=== PATIENT | female | born 1975 | race Caucasian/White ===

== ENCOUNTER 2023-12-01 22:41 | Inpatient (IN) | payer BC, SELFPAY ==
[2023-12-01 19:05] VITALS: BP 135/94; BMI 37.7
[2023-12-01 19:09] VITALS: BP 135/94
[2023-12-01 19:28] LABS: % Basophils 0.5 % (0-2); % Eosinophils 1.6 % (0-6); % Immature Granulocytes 0.3 % (0-0.5); % Lymphocytes 36.9 % (20.5-51.1); % Monocytes 8.7 % (1.7-9.3); Absolute Eosinophils 0.1 10^3/uL (0-0.7); Absolute Lymphocytes 2.4 10^3/uL (1.2-3.4); Absolute Monocytes 0.6 10^3/uL (0.1-0.6); Absolute Neutrophils 3.4 10^3/uL (1.4-6.5); Hematocrit 32.9 % (37.0-47.0); Hemoglobin 11.4 g/dL (12.0-16.0); Mean Corp Hgb Conc. 34.7 g/dL (33.0-37.0); Mean Corpuscular Hgb 26.7 pg (27.0-31.0); Mean Platelet Volume 9.6 fL (7.4-10.4); Nucleated Red Blood Cells % 0 %; Platelet Count 311 10^3/uL (130-400); Red Blood Cell Count 4.27 10^6/uL (4.20-5.40); Red Cell Dist. Width 14.3 % (11.5-14.5); White Blood Cell Count 6.5 10^3/uL (4.8-10.8)
[2023-12-01 19:43] LABS: ALT (SGPT) 16 U/L (0-35); AST (SGOT) 19 U/L (14-36); Alkaline Phosphatase 84 U/L (38-126); Blood Urea Nitrogen 17 mg/dl (7-17); Calcium 9.6 mg/dl (8.4-10.2); Carbon Dioxide 18 mmol/L (22-30); Chloride 108 mmol/L (98-107); Estimated Creatinine Clearance 95 ml/min; Glucose 92 mg/dl (70-99); Sodium 136 mmol/L (135-145); Total Bilirubin 0.2 mg/dl (0.2-1.3); Total Protein 6.9 g/dl (6.3-8.2); eGFR > 60.00
[2023-12-01 19:56] LABS: Troponin I 0.077 ng/ml
[2023-12-01 19:57] LABS: INR 0.95; PT 12.7 Sec (11.4-14.6)
[2023-12-01 19:58] LABS: APTT 26.3 Sec (23.4-35.0)
--- NOTE | 2023-12-01 20:01 | ED.GENMED ---
History of Present Illness
General
Chief Complaint: Cardiac Symptoms
Time Seen by Provider: 12/01/23 19:05
History of Present Illness
History of Present Illness:
48-year-old female with history of ventricular tachycardia with defibrillator presenting to the emergency department after her device fired. Reports prior to arrival she was lying in bed and her device fired. She did have some prodromal
lightheadedness and dyspnea. She now reports some residual shortness of breath. She cannot remember when her device last fired like this, did have a small event in October and I did see cardiology afterward. Denies any present chest pain.
Denies abdominal pain. Denies any recent fever or illness. Does report a little bit of chest soreness after the device fired. Denies additional acute medical complaints
Past History
Past History
ED Past Medical History: GERD and Other (opiate addiction, on Methadone)
ED Past Surgical History: None
Patient has exhibited threatening behavior?: No
Social History
Tobacco: Non-smoker
Alcohol: None
Drug: None
Personal: Other
Living: with family
Employment: Employed
Family History
Family History: Other
Phy Exam
Physical Exam
Physical Exam:
General: Well-appearing, no clinical signs of dehydration, nontoxic and in no acute distress
HEENT: protecting airway
Neck: appears supple
CV: Normal heart rate, regular rhythm
Resp: No accessory muscle use, no increased work of breathing, lungs clear to auscultation bilaterally
Abd: Soft and non-distended, no tenderness to palpation
Extremities: No deformities, no swelling
Neuro: alert, no focal neurologic deficit
: deferred
Rectal: deferred
Psych: Normal affect
Skin: Intact
Course
Orders/Labs/Results
Orders:
Orders
12/01/23 19:15
Electrocardiogram (*1) Urgent
Reason for Study: Shortness of Breath
EKG- Treatment ONCE
CR Chest - 2 Views Urgent
Comment:
Reason For Exam: defibrillator went off
12/01/23 19:20
Complete Blood Count/With Diff Urgent
Comprehensive Metabolic Panel Urgent
PTT Urgent
Prothrombin Time Urgent
Troponin I Urgent
Abnormal Lab Results
12/01/23
19:20
Hgb 11.4 L g/dL
(12.0-16.0)
Hct 32.9 L %
(37.0-47.0)
MCV 77.0 L fL
(81.0-99.0)
MCH 26.7 L pg
(27.0-31.0)
Chloride 108 H mmol/L
(98-107)
Carbon Dioxide 18 L mmol/L
(22-30)
Troponin I 0.077 H* ng/ml
12/01/23 19:20
12/01/23 19:20
Vital Signs
Initial and Last Documented VS:
Initial Vital Signs
Temp Pulse Resp BP Pulse Ox
98.4 F 86 18 135/94 97
12/01/23 19:05 12/01/23 19:05 12/01/23 19:05 12/01/23 19:05 12/01/23 19:05
Last Documented Vital Signs
Temp Pulse Resp BP Pulse Ox
98.4 F 86 19 135/94 97
12/01/23 19:05 12/01/23 19:30 12/01/23 19:30 12/01/23 19:09 12/01/23 19:41
MDM/Problems Addressed
MDM/Problems Addressed:
48-year-old female with history of ventricular tachycardia with defibrillator presenting to the emergency department after her device fired. Vital signs on arrival are normal.
On exam patient is resting comfortably, no acute distress or discomfort. EKG obtained, sinus rhythm. Suspect that patient may have had an episode of ventricular tachycardia given her history. Will interrogate device and obtain laboratory analysis
with plan to discuss with cardiology.
20:00 -Patient's troponin is elevated, however appears improved from prior. Suspected elevated from recent device firing.
21:00 -device interrogated, does show episode of V-fib with subsequent successful shock. Will discuss with cardiology with plan for admission.
*EKG
Interpreted by ED Provider?: Yes
EKG Intrepretation Date: 12/01/23
EKG Intrepretation Time: 20:03
Interpretation: normal
Comparison EKG: no changes (01/05/19)
Heart Rate: 80
Rate: normal
Rhythm: sinus
[place]: normal axis
Interval: other (QTc 525)
QRS Pattern: normal QRS
Ischemia: no ischemia
*Critical Care Note
Total Time (30-74mins, 75-104mins- exclusive of procedures): Not Applicable
ED Attending Note
-
Portions of this chart may have been created with voice recognition software.� Occasional wrong word or��sound alike� substitutions may have occurred due to the inherent limitations of voice recognition software.
Discharge Plan
Departure
Prescriptions:
No Action
esomeprazole magnesium [Nexium] 40 MG capsule,delayed release(DR/EC)
40 mg PO DAILY
fluoxetine 40 mg Capsule
40 mg PO HS
Rx Instructions:
take with 20mg for total of 60mg
quetiapine 300 mg Tablet
300 mg PO HS
lisinopril 20 mg Tablet
20 mg PO HS
metoprolol succinate 100 mg Tablet Extended Release 24 Hr
200 mg PO HS
ibuprofen [Advil] 200 mg Tablet
400 mg PO Q8HPRN PRN (Reason: mild pain)
methadone 10 mg/mL Concentrate
40 mg PO DAILY
fluoxetine 20 mg Capsule
20 mg PO HS
Rx Instructions:
take with 40mg for total of 60mg
medroxyprogesterone 150 mg/mL Suspension
150 mg IM [id number]
Referrals:
Aretha Chacon NP [Family Provider] -
Interventions
Interventions:
*Risk Screen - Suicide Last Done: 12/01/23 19:05
*General Assessment Last Done: 12/01/23 19:05
*Neglect/Abuse Screening Last Done: 12/01/23 19:05
ED- Fall Risk Assessment Last Done: 12/01/23 19:41
*ED COVID-19 Vaccine History Last Done: 12/01/23 19:41
ED- Pulmonary Assessment Last Done: 12/01/23 19:41
ED- Cardiac Assessment Last Done: 12/01/23 19:41
Discharge Date and Time
Print Language: ARMENIAN
[2023-12-01 20:09] VITALS: BP 129/74
[2023-12-01 21:00] VITALS: BP 107/75
--- NOTE | 2023-12-01 21:36 | HPS.HSE ---
Family Physician
-
Family Physician: Aretha Chacon
Chief Complaint
-
ICD fired
History of Present Illness
Patient is a 48-year-old female with past medical history significant for ventricular tachycardia with ICD placement in 2018 and previous IV drug abuser maintained on Methadone. Patient states she felt some palpitations and dyspnea around 1715 this
evening and at approximately 1720 the ICD fired causing her to come to [facility] ED for evaluation. Patient claims she feels palpitations for short spurts maybe once or twice a month, denies ICD firing prior to this since placement.
Patient denies any recent fever, chills, chest pain, dyspnea, cough, nausea, vomiting, constipation, diarrhea, or urinary symptoms. She denies any recent change in medications regimen at home.
Medical History
Past Medical History
Past Medical History: Reports Other
Additional Past Medical History:
monomorphic ventricular tachycardia
former IV drug abuse managed with methadone
hepatitis C infection
GERD
depression
Past Surgical History: Reports Other
Additional Past Surgical History:
ICD placement 12/2018
Social History
Tobacco: Smoker (1/2 pack per day for 29 years (15 pack year history))
Alcohol: None
Drug: Former User (says stopped long time ago, did not provide time frame)
Personal: Single
Living: With Family
Employment: Employed
Family History
Family History: Not pertinent
Allergies / Home Medications
Allergies reflects when Allergies were last updated in [employer].
Home Medications with original date entered in [employer]
Allergy/Medication List:
Allergies
Allergy/AdvReac Type Severity Reaction Status Date / Time
No Known Allergies Allergy Verified 12/24/18 17:40
Home Medications
esomeprazole magnesium 40 mg capsule,delayed release (Nexium) 40 mg PO DAILY 12/24/18
fluoxetine 20 mg capsule 20 mg PO HS 12/01/23
fluoxetine 40 mg capsule 40 mg PO HS 12/01/23
ibuprofen 200 mg tablet (Advil) 400 mg PO Q8HPRN PRN mild pain 12/01/23
lisinopril 20 mg tablet 20 mg PO HS 12/01/23
medroxyprogesterone 150 mg/mL intramuscular suspension 150 mg IM [id number] 12/01/23
methadone 10 mg/mL oral concentrate 40 mg PO DAILY 12/01/23
metoprolol succinate 100 mg tablet,extended release 24 hr 200 mg PO HS 12/01/23
quetiapine 300 mg tablet 300 mg PO HS 12/01/23
Review of Systems
-
Constitutional: Reports No Symptoms
EENT: Reports No Symptoms
Respiratory: Reports Other (dyspnea)
Cardiac: Reports Palpitations
Abdomen/GI: Reports No Symptoms
: Reports No Symptoms
Musculoskeletal: Reports No Symptoms
Skin: Reports No Symptoms
Neurological: Reports No Symptoms
Endocrine: Reports No Symptoms
Hematologic/Lymphatic: Reports No Symptoms
Psych: Reports No Symptoms
Physical Exam
Vital Signs
Vital Signs
Temp Pulse Resp BP Pulse Ox
98.4 F 73 17 107/75 98
12/01/23 19:05 12/01/23 21:30 12/01/23 20:15 12/01/23 21:00 12/01/23 21:30
Physical Exam
General: Well Developed, Well Nourished, No Apparent Distress, Comfortable and Conversant
HEENT: NormoCephalic, Moist mucous membranes, Atraumatic, PERRLA, [place] Conjunctivae, Nose Appears Normal and Ears Appear Normal
Respiratory: Clear and Non Labored Respirations; No Wheezes, Rales, Rhonchi or Crackles
Cardiac: S1/S2 and Regular Rhythm; No Murmur, Rub or Gallop
Breast: Deferred by me
GI: Soft, Non Tender, Non Distended and Normal Bowel Sounds; No Organomegaly
Rectal: Deferred by Provider
Genito-urinary: Deferred by me
Musculoskeletal: No Clubbing, No Cyanosis, No Edema and Normal Gait & Station
Skin: Warm, Dry and IV/Catheter Site; No Rash
Neuro: Awake, Alert, AO x 3 and Nonfocal/grossly intact
Hematologic/Lymphatic: No Lymphadenopathy
Psych: Calm and Intact Judgment/Insight
Laboratory Results
-
12/01/23 19:20
12/01/23 19:20
Laboratory Results
PT 12.7 Sec (11.4-14.6) 12/01/23 19:20
INR 0.95 12/01/23 19:20
APTT 26.3 Sec (23.4-35.0) 12/01/23 19:20
Total Bilirubin 0.2 mg/dl (0.2-1.3) 12/01/23 19:20
AST 19 U/L (14-36) 12/01/23 19:20
ALT 16 U/L (0-35) 12/01/23 19:20
Alkaline Phosphatase 84 U/L (38-126) 12/01/23 19:20
Troponin I 0.077 ng/ml H* 12/01/23 19:20
Data Reviewed
-
Diagnostic Radiology: Report Reviewed by me (CXR: No acute cardiopulmonary abnormality. Stable appearance of the left chest wall pacemaker/defibrillator with leads projecting over the right atrium and right ventricle.)
Medical Tests (Nuc Med, Echo, EKG etc): Report Reviewed by me (EKG: NORMAL SINUS RHYTHM WITH SINUS ARRHYTHMIA NONSPECIFIC T WAVE ABNORMALITY)
Lab Data: Labs Reviewed by me
Impression/Plan
-
IMPRESSION/PLAN:
#monomorphic ventricular tachycardia
- ICD placement in 2018
- Defibrillator fired this evening following a short period of palpitations and dyspnea
- Admit to IVU
- Continue metoprolol, lisinopril
- Trend troponin with EKG
- Monitor electrolytes
#former IV drug abuse managed with methadone
#Hx hepatitis C infection
- continue methadone
#GERD
- continue Nexium
#depression
- continue fluoxetine, quetiapine
Full Code
DVT Px: Lovenox SQ
--- NOTE | 2023-12-01 21:43 | W.PN.UPDATE ---
Update Note
Progress Note Update
Patient seen in conjunction with ACCESS TECH. I agree with the findings on history and physical as well as concur with the assessment and plan unless stated otherwise.
This is a 48-year-old female with past medical history of monomorphic V. tach status post defibrillator placement in 2019 who presents to the emergency department after device firing while she was sitting down watching TV. Interrogation of her
device showed that she had episode of V-fib that was terminated with defied shock. Patient has not been seen by cardiology for over a year due to noncompliance. Patient related that she has had 4 episodes of defibrillation since placement of the
device. He declined basically LFTs noted but it has been over a year. At that time he admitted to give against about skylar just called the on-call physician. This time the patient reported that she was feeling palpitations and felt like she was
about to be felt and did not know if she felt to be defibrillation. She talked with the on-call physician who requested that she go to emergency department. Patient denies any recent exertional chest pain, dyspnea on exertion, palpitations
lightheadedness or dizziness. She reports that she is noncompliant with her metoprolol and lisinopril. She takes methadone, fluoxetine, quetiapin. She denies taking any recreational drugs.
Intermittent department she was hemodynamically stable with a blood pressure of 100/75 pulse of 73. She is at 98% on room air. Chest x-ray was clear. ECG showed a normal sinus rhythm at a rate of 80. QTc was 525. CBC was unremarkable.
Chemistries were normal. Troponin was slightly elevated at 0.07.
Assessment and plan:
48 y.o w/ history non-obstructive CAD, monomorphic VT s/pp AICD with h/o defribillation episodes in the past comes in soon after episode of defribillation. Device indicated VFIB terminated with shock. Patient with palpitaitons immediately
antecedent but denies other symptoms. ECG non-ischemic, QTc 525. Trop 0.07. Lytes, CBC unremarkable. She is on methadone 40mg daily. Suspect ischemic vs non-ischemic cmp and patient also on QTc prolonging medications but does not appear to have
prolongation at this time.
- admit to ivu
- telemetry, repeat cardiac enzymes
- hold off on anti-arrythmia unless recurrence, then amio loading
- check cardiovascular labs and echo in am
- ecg for monitoring qtc
- continue metoprolol 200, hold lisinopril this evening and restart tomorrow
- cardiology consult to CBC, aware
DVT PPX - lovenox sq
Devin status - Full Code
[2023-12-01 22:00] VITALS: BP 132/91
[2023-12-01 23:00] VITALS: BP 120/83
[2023-12-02] VITALS: BP 112/68
[2023-12-02 00:24] VITALS: BP 138/86
--- NOTE | 2023-12-02 02:40 | PTCARENOTE ---
pt admitted into [facility]- ambulating without complaints GALI Fuentes- noted methadone use in H&P. Plan of care discussed pt verbalized understanding. monitor hand off completed pt SR on the monitor.
[2023-12-02 02:51] VITALS: BMI 36.5
[2023-12-02 03:18] VITALS: BP 136/84
[2023-12-02 04:25] LABS: % Basophils 0.6 % (0-2); % Eosinophils 1.3 % (0-6); % Immature Granulocytes 0.3 % (0-0.5); % Lymphocytes 39.1 % (20.5-51.1); % Monocytes 7.8 % (1.7-9.3); % Neutrophils 50.9 % (42.2-75.2); Absolute Eosinophils 0.1 10^3/uL (0-0.7); Absolute Lymphocytes 2.8 10^3/uL (1.2-3.4); Absolute Monocytes 0.6 10^3/uL (0.1-0.6); Absolute Neutrophils 3.6 10^3/uL (1.4-6.5); Hematocrit 37.2 % (37.0-47.0); Hemoglobin 12.8 g/dL (12.0-16.0); Mean Corp Hgb Conc. 34.4 g/dL (33.0-37.0); Mean Corpuscular Hgb 26.4 pg (27.0-31.0); Mean Corpuscular Volume 76.9 fL (81.0-99.0); Nucleated Red Blood Cells % 0 %; Red Blood Cell Count 4.84 10^6/uL (4.20-5.40); Red Cell Dist. Width 14.3 % (11.5-14.5)
[2023-12-02 05:10] LABS: ALT (SGPT) 17 U/L (0-35); AST (SGOT) 24 U/L (14-36); Albumin 4.2 g/dl (3.5-5.0); Alkaline Phosphatase 88 U/L (38-126); Blood Urea Nitrogen 15 mg/dl (7-17); Calcium 9.7 mg/dl (8.4-10.2); Carbon Dioxide 20 mmol/L (22-30); Chloride 108 mmol/L (98-107); Estimated Creatinine Clearance 93 ml/min; Glucose 91 mg/dl (70-99); Potassium 4.6 mmol/L (3.5-5.1); Sodium 139 mmol/L (135-145); Total Bilirubin 0.6 mg/dl (0.2-1.3); Total Protein 7.5 g/dl (6.3-8.2); Troponin I 0.196 ng/ml; eGFR > 60.00
[2023-12-02 06:32] LABS: Mean Platelet Volume 10.6 fL (7.4-10.4); Platelet Count 281 10^3/uL (130-400)
[2023-12-02 07:38] VITALS: BP 132/84
--- NOTE | 2023-12-02 08:11 | CON.CAR ---
Addendum entered and electronically signed by [place] Elena MD 12/02/23 13:21:
I saw and examined the patient.
The NURSING RESIDENT's note was reviewed and I agree with the note.
Comment: I will add Metoprolol ER 50 mg in AM to her 200 mg in PM. Her QTc makes amiodarone the only good antiarrhythmic drug to add next. Her last VT needing treatment was about 1 year ago. I will arrange outpatient consult with Dr. Garnett for
her to learn about VT ablation. Given her youg age a VT ablation makes a lot of sense. I will add back SGLT2-I (she can use a copay card). OK for home later today. We will arrange follow up with us. She was overdue to see me.
Original Note:
Consultation
Consultation Request
Date/Time Consultation Requested: 12/02/2023 00:25
Date/Time Consultation Performed: 12/02/2023 08:00
Requesting Provider: GALI Couch
Performing Provider: GALI Orellana for Dr. Elena
Reason for Consultation: ICD Shock
Medical History
-
Chief Complaint: ICD Shock
History of Present Illness:
Stella Malloy is a 48-year-old female (known to Dr. Elena, her primary title curative specialist), with nonischemic cardiomyopathy, VT status post ICD, prior IVDA on methadone, treated hepatitis C, and current smoker who presented to the emergency department
with ICD shock. She endorses medication adherence. She has been feeling well. She believes she may have had COVID-19 a few weeks ago. She endorsed an upper respiratory infection but did not test. She was lying in bed when her ICD fired. She
had some prodrome of lightheadedness. She denies chest pain and shortness of breath.
Past Medical History
Past Medical History: Arrhythmias (VT S/P ICD), CHF (NICM), Psychiatric (Prior IVDA, depression) and Other (Hepatitis C)
Social History
Tobacco: Smoker
Alcohol: None
Drug: Former User (Prior IVDA on methadone)
Employment: Employed ([employer])
Family History
Family History: Reviewed & Not Pertinent
Allergies / Home Medications
Allergy/AdvReac Type Severity Reaction Status Date / Time
No Known Allergies Allergy Verified 12/24/18 17:40
�Medication �Instructions �Recorded �Confirmed �Type
esomeprazole magnesium 40 mg 40 mg PO DAILY Gastrointestinal 12/24/18 12/01/23 History
capsule,delayed release (Nexium) Issue
fluoxetine 20 mg capsule 20 mg PO HS Depression 12/01/23 12/01/23 History
fluoxetine 40 mg capsule 40 mg PO HS Depression 12/01/23 12/01/23 History
ibuprofen 200 mg tablet (Advil) 400 mg PO Q8HPRN PRN mild pain 12/01/23 12/01/23 History
lisinopril 20 mg tablet 20 mg PO HS Blood Pressure 12/01/23 12/01/23 History
medroxyprogesterone 150 mg/mL 150 mg IM [id number] Hormonal Agent 12/01/23 12/01/23 History
intramuscular suspension
methadone 10 mg/mL oral concentrate 40 mg PO DAILY Substance abuse 12/01/23 12/01/23 History
disorder
metoprolol succinate 100 mg 200 mg PO HS Blood Pressure 12/01/23 12/01/23 History
tablet,extended release 24 hr
quetiapine 300 mg tablet 300 mg PO HS Mental Health/Anxiety 12/01/23 12/01/23 History
Review of Systems
-
History Source: Patient
All other systems: Negative unless noted
Constitutional: No Symptoms
EENT: No Symptoms
Respiratory: No Symptoms
Cardiac: No Symptoms
Abdomen/GI: No Symptoms
: No Symptoms
Musculoskeletal: No Symptoms
Skin: No Symptoms
Neurological: No Symptoms
Endocrine: No Symptoms
Hematologic/Lymphatic: No Symptoms
Physical Exam
Vital Signs
Temp Pulse Resp BP Pulse Ox
98.6 F 70 20 138/86 96
12/02/23 07:36 12/02/23 02:45 12/02/23 07:36 12/02/23 00:24 12/02/23 07:36
Lab Results
12/02/23 03:35
12/02/23 03:35
Troponin I Cancelled 12/02/23 12:28
Physical Exam
General: Well Developed, Well Nourished and No Apparent Distress
HEENT: Normocephalic, Anicteric and Moist Mucous Membranes
Respiratory: Clear and Non Labored Respirations
Cardiac: S1/S2 and Regular Rhythm
Breast: Deferred by me
GI: Soft, Non Tender, Non Distended and Normal Bowel Sounds
Rectal: Deferred by Provider
Genito-urinary: No Costovertebral Tender
Musculoskeletal: No Clubbing, No Cyanosis and No Edema
Skin: Warm and Dry
Neuro: AO x 3
Hematologic/Lymphatic: No Lymphadenopathy
Psych: Calm
Impression / Plan
-
BACKGROUND: 48F with history of injection drug use maintained on chronic methadone, now treated hepatitis C, tobacco abuse, nonischemic cardiomyopathy, and ventricular tachycardia status post ICD who presented with ICD shock.
Facility Planner: Dr. Elena
PLAN:
ICD Shock
-EGM with VT/VF receiving 36J shock restoring sinus rhythm 12/01/2023 at device time of 16:54 (213 bpm) & 16:55 (231 bpm)
-Prolonged QT on initial EKG, now improved
-Medtronic Dual-chamber ICD placed 12/2018
-Electrolytes are stable
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
-MRI 2019: Extensive mid wall enhancement of the inferior wall and portions of the septum of the lateral wall, myocarditis versus DCM
Abnormal troponin, nonischemic myocardial injury in the setting of ICD shock
-Trend to peak
-Chest pain-free
Nonischemic cardiomyopathy (LVEF 45-50%), chronic
-She does not appear to be in acute/decompensated heart failure
-GDMT as tolerated
-DOUGIE/ARB: Lisinopril 20 mg daily
-Beta-abhijeet: Metoprolol succinate 200 mg HS
-SGLT2: Case Mgmt to reich
-ICD: In place, Medtronic
-Trend daily weight, I/O
Former intravenous drug abuse, on chronic methadone
Hepatitis C, reports receiving treatment
Current smoker, cessation recommended
SUBJECTIVE: See ROS
Data Reviewed
-
EKG: Report Reviewed by me (Sinus rhythm, nonspecific ST and T wave abnormality, rate 70; sinus arrhythmia, nonspecific T wave abnormality, prolonged QT, rate 80)
Medical Tests (Nuc Med, Echo etc): Report Reviewed by me (Prior cardiac MRI and echocardiogram as above)
Labs: Labs Reviewed by me
Old Records: Reviewed (As above)
[2023-12-02] MEDS: PROTONIX 40 MG PO (10:12)
[2023-12-02] MEDS: METHADONE 100 MG/10 ML 40 MG PO (10:12)
[2023-12-02 10:21] LABS: Magnesium 2.2 mg/dl (1.6-2.3)
[2023-12-02 10:21] LABS: Troponin I 0.076 ng/ml
--- NOTE | 2023-12-02 10:26 | PTCARENOTE ---
received patient this am, monitor shows NSR, VSS. patient takes methadone , pharmacy sent form for patient to sign to confirm dosage from clinic. given as ordered.
--- NOTE | 2023-12-02 10:46 | CARDSERVLU ---
Echocardiogram with [facility] completed after protocol screening completed. Allergies verified.
Patent IV site: _Left hand 22 G PC site clear____
IV site flushed with 0.9% NaCl pre and post administration.
Diluted bolus method utilized to enhance visualization of ventricular reinoso.
Total volume given: __3__ mL
Patient tolerated all procedures well without complications.
--- NOTE | 2023-12-02 11:36 | CM ---
Priced the following medications thru insurance, [employer]- [phone]
Faisal Sanders and Mark- Pt. will need to meet deductible of 1,600/yr and thus far has met 263.20. This deductible includes medical. Once deductible met, patient will be responsible for 30% of the cost of the medications, approximately
$130-150/mo. Pt., however, would qualify for coupons-both free 30 d coupons + $10 or free coupons/ month. Will provide coupons to patient upon DC for medications Rxed.
--- NOTE | 2023-12-02 11:40 | CM ---
CM following for DC planning needs.
Met w/ patient at bedside to complete initial assessment.
Pt. resides w/ mother @ [address] [place] [id number].
She is functionally indep. at baseline w/ ADLs, mobility without the use of any assisted device.
Pt. receives Methadone Maintenance @ [facility].
Did review estimated Rx cost + coupons w/ patient. She is aware and agreeable to medications if Rxed. Will place coupons in chart for use upon DC.
Anticipated DC plan is for home, no needs.
Will follow.
[2023-12-02 11:50] VITALS: BP 125/77
[2023-12-02 12:28] LABS: Glycohemoglobin (HgbA1c) 5.6 % (4.0-5.6)
--- NOTE | 2023-12-02 12:41 | W.PN.HOSP.TC ---
Addendum entered and electronically signed by Daniel Kent MD 12/02/23 13:35:
Spoke with cardiology, they have added 50 mg metoprolol in a.m. along with her usual metoprolol in p.m. Patient will follow-up with cardiology outpatient for possible ablation. Will also discharge her on Jardiance, she has co-pay card. Discharge
today
Time of discharge 37 minutes
Original Note:
Today's Communication/Plan
-
monitor vitals
see plan
echo with EF 45% which hasnt changed from prior
mag 2.2
cardiology follwoing
Assessment / Plan
Assessment / Plan
General: Well Developed, Well Nourished, No Apparent Distress, Comfortable and Conversant
HEENT: NormoCephalic, Moist mucous membranes, Atraumatic, PERRLA, [place] Conjunctivae, Nose Appears Normal and Ears Appear Normal
Respiratory: Clear and Non Labored Respirations; No Wheezes, Rales, Rhonchi or Crackles
Cardiac: S1/S2 and Regular Rhythm; No Murmur, Rub or Gallop
GI: Soft, Non Tender, Non Distended and Normal Bowel Sounds
Musculoskeletal: No Clubbing, No Cyanosis, No Edema and Normal Gait & Station
Skin: Warm, Dry and IV/Catheter Site; No Rash
Neuro: Awake, Alert, AO x 3 and Nonfocal/grossly intact
Psych: Calm and Intact Judgment/Insight
ventricular tachycardia/vfib
- ICD placement in 2018
- Defibrillator fired 11/30 following a short period of palpitations and dyspnea
- Continue metoprolol, lisinopril
- Monitor electrolytes
echo with EF 45%; discussed with cardiology as history of nonischemic cardiomyopathy with EF 45 to 50% which is chronic
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
-MRI 2019: Extensive mid wall enhancement of the inferior wall and portions of the septum of the lateral wall, myocarditis versus DCM
Elevated troponin, likely secondary to shock
Continue to monitor
Denies any chest pain
#former IV drug abuse managed with methadone
#Hx hepatitis C infection
- continue methadone
#GERD
- continue Nexium
#depression
- continue fluoxetine, quetiapine
Full Code
DVT Px: Lovenox SQ
I spent a total of 52 minutes with the patient or on the floor. More than 50% of this time involved counseling and coordination of care.
Anticipated Discharge: Within 24 hours
Subjective/Interval History
-
Date of Service: December 02, 2023
denies pain
Objective Data
-
Labs:
Laboratory Results
12/02/23
03:35
WBC 7.0
Hgb 12.8
Hct 37.2
Plt Count 281
Sodium 139
Potassium 4.6
Chloride 108 H
Carbon Dioxide 20 L
BUN 15
Creatinine 0.9
Glucose 91
Calcium 9.7
Total Bilirubin 0.6
AST 24
ALT 17
Alkaline Phosphatase 88
Vital Signs:
Vital Signs
Temp Pulse Resp BP Pulse Ox
99.1 F 70 20 132/84 97
12/02/23 11:48 12/02/23 10:45 12/02/23 11:48 12/02/23 07:38 12/02/23 11:48
--- NOTE | 2023-12-02 13:33 | W.DCSUMMARY ---
Discharge Summary
Discharge Data
Date of Admission: 12/01/23
Date of Discharge: 12/02/23
-
Pending Results: No
Hospital Course
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 tach/V-fib came to the hospital after an ICD shock for V. tach/V-fib. Echocardiogram
was done which showed EF of 45% which has not changed from previous echocardiogram. Patient was seen by cardiology throughout hospitalization. On her medication regimen, cardiology added metoprolol. She also had mild troponin elevation which was
likely thought was secondary to shock. Since her symptoms continue to improve, she was then discharged home with instructions to follow-up with all her physicians outpatient.
Discharge Plan
-
Patient Disposition: Home (Routine Discharge)
Discharge Diagnosis/Procedures: Ventricular tachycardia/ventricular fibrillation status post ICD shock
Nonischemic myocardial injury related troponin elevation
Diet: As tolerated
Activity: As tolerated
Driving Restrictions: As prior to admission
Bathing Restrictions: None
Referrals:
Aretha Chacon NP [Family Provider] - in less than 1 week
Montana Elena MD [Active] -
Prescriptions:
New
Jardiance 10 mg tablet
10 mg PO DAILY 30 Days Qty: 30 0RF
metoprolol succinate 50 mg Tablet Extended Release 24 Hr
50 mg PO DAILY Qty: 30 0RF
Continued
esomeprazole magnesium [Nexium] 40 MG capsule,delayed release(DR/EC)
40 mg PO DAILY
fluoxetine 40 mg Capsule
40 mg PO HS
Rx Instructions:
take with 20mg for total of 60mg
quetiapine 300 mg Tablet
300 mg PO HS
lisinopril 20 mg Tablet
20 mg PO HS
metoprolol succinate 100 mg Tablet Extended Release 24 Hr
200 mg PO HS
ibuprofen [Advil] 200 mg Tablet
400 mg PO Q8HPRN PRN (Reason: mild pain)
methadone 10 mg/mL Concentrate
40 mg PO DAILY
fluoxetine 20 mg Capsule
20 mg PO HS
Rx Instructions:
take with 40mg for total of 60mg
medroxyprogesterone 150 mg/mL Suspension
150 mg IM [id number]
Discharge Orders:
Discharge Patient (As Directed); Ordered 12/02/23
Ordered By: Daniel Kent
Care Plan Goals
Care Plan Goals:
Problem: Readiness for enhanced knowledge related to diagnosis and treatment plan
Goal: Understand your diagnosis and treatment plan needs, including medications if applicable.
Instructions: Know your diagnosis, underlying causes and treatment plan options, including medications if applicable. Consult with your health care team to learn about your diagnosis and treatment plan, including medications if applicable.
Discharge Date and Time
Discharge Date/Time: 12/02/23 15:00
Print Language: COLOMBIAN
--- NOTE | 2023-12-02 15:09 | PTCARENOTE ---
D/C instructions given to patient , verbalizes understanding. INT D/C'd, telemetry D/C'd. personal belongings packed and sent home with patient. D/C to home via wc accompanied by staff.
== END 2023-12-02 15:00 | disposition home or self-care (01) | DRG 309 ==
LOC: IVU 22:41
PROVIDERS: Internal Medicine; Nurse Practitioner Family; ADMITTING PHYSICIAN Internal Medicine; ATTENDING PHYSICIAN Internal Medicine; EMERGENCY PHYSICIAN Student in an Organized Health Care Education/Training Program; FAMILY PHYSICIAN Family Medicine; OTHER PHYSICIAN Internal Medicine Cardiovascular Disease
DX: I49.01 Ventricular fibrillation (principal); I5A Non-ischemic myocardial injury (non-traumatic); R57.9 Shock, unspecified; I47.29 Other ventricular tachycardia; I42.8 Other cardiomyopathies; F17.210 Nicotine dependence, cigarettes, uncomplicated; K21.9 Gastro-esophageal reflux disease without esophagitis; F32.A Depression, unspecified; Z86.79 Personal history of other diseases of the circulatory system
CPT/HCPCS: 71046; 80053; 83036; 83735; 84484; 85025; 85610; 85730; 93005; 93306; 99285; Q9950

== ENCOUNTER 2024-03-13 13:03 | Inpatient (IN) | payer BC, SELFPAY ==
--- NOTE | 2024-03-13 10:08 | W.PN.CD ---
Addendum entered and electronically signed by Onur Phillips MD 03/13/24 14:51:
I saw and examined the patient.
The CENTRIFUGAL SPINNER's note was reviewed and I agree with the note.
Comment:
48-year-old female with history of nonischemic cardiomyopathy and VT with prior ICD shocks who presents for sotalol loading. She feels well and has no cardiovascular complaints. Labs including BMP and CBC are fairly unremarkable. ECG reveals
normal sinus rhythm, QTc 464 ms. She is well-appearing, examines euvolemic, and has a regular rate and rhythm with no murmurs, rubs, gallops. We will initiate sotalol 120 mg twice daily. Please obtain ECG after each dose.
Original Note:
Today's Communication / Plan
-
This is the consultation summary. Please see scanned H&P.
Sotalol loading per protocol.
Impression / Plan
-
BACKGROUND: 48F with NICM (EF 45-50%), VT with prior ICD shocks (MDT DC ICD), smoker and former IVDA on methadone presents for sotalol loading after ICD shock
Primary Paraffin Plant Operator: Dr. Elena
VT s/p ICD Shock
-ICD shock 02/26/2024, first episode successful with ATP x 1 the next episode 1 minute later with ATP that was unsuccessful and a 36 J shock (monomorphic VT at 260)
-Sotalol loading per protocol after BMP and EKG -- this requires intensive monitoring
-She is scheduled for EP consultation with Dr. Garnett 04/04/2024 to discuss VT ablation
Nonischemic cardiomyopathy (LVEF 45-50%), chronic
-Daily weight, I/O, and low sodium diet
-She does not require a standing diuretic
Medtronic dual-chamber ICD
IVDA history, on methadone
Current smoker, continue cessation recommended
SUBJECTIVE:
Feeling well without CP and SOB.
Physical Exam
Physical Exam
Constitutional: No acute distress and Comfortable
EENT: Anicteric and Moist mucous membranes
Cardiovascular: Rhythm & rate is regular, Pedal edema is absent and S1S2 is normal
Respiratory: Respiratory effort normal and Lungs clear to auscul.
GI: Soft, Distention absent, Flat, Non tender and Normal bowel sounds
Neuro/Psych: AO x 3
Other: Skin (warm and dry)
Data Reviewed
-
Date of Service: March 13, 2024
EKG: Report Reviewed by me
Echo: Report Reviewed by me
Medical Tests (PFT, Pathology etc): Report Reviewed by me
Labs: Labs Reviewed by me
Old Records: Reviewed
[2024-03-13 13:26] VITALS: BP 112/87
[2024-03-13 14:01] LABS: Hematocrit 34.5 % (37.0-47.0); Hemoglobin 11.6 g/dL (12.0-16.0); Mean Corp Hgb Conc. 33.6 g/dL (33.0-37.0); Mean Corpuscular Hgb 27.4 pg (27.0-31.0); Mean Corpuscular Volume 81.4 fL (81.0-99.0); Mean Platelet Volume 10.1 fL (7.4-10.4); Platelet Count 330 10^3/uL (130-400); Red Blood Cell Count 4.24 10^6/uL (4.20-5.40); Red Cell Dist. Width 14.9 % (11.5-14.5); White Blood Cell Count 6.5 10^3/uL (4.8-10.8)
[2024-03-13 14:20] LABS: Blood Urea Nitrogen 15 mg/dl (7-17); Calcium 9.5 mg/dl (8.4-10.2); Carbon Dioxide 18 mmol/L (22-30); Chloride 106 mmol/L (98-107); Glucose 115 mg/dl (70-99); Potassium 4.1 mmol/L (3.5-5.1); Sodium 136 mmol/L (135-145); eGFR > 60.00
[2024-03-13 15:18] VITALS: BP 111/69
--- NOTE | 2024-03-13 15:20 | CM ---
Chart reviewed. Patient is independent of ADLS, lives with her mother in a apartment, 1st floor, 0 VLADIMIR, 0 DME. Plan is for the patient to return home. CM to follow
[2024-03-13] MEDS: BETAPACE 120 MG PO (16:23)
--- NOTE | 2024-03-13 16:29 | PTCARENOTE ---
Pt received as a direct admit for Sotolol loading. Pt with no c/o of any pain or sob. OOB ad demetrius. Atrial paced in the 60's.
[2024-03-13 18:43] VITALS: BP 105/74
[2024-03-13] MEDS: ZESTRIL 20 MG PO (20:48)
[2024-03-13] MEDS: SEROQUEL 200 MG PO (20:48)
[2024-03-13] MEDS: PROZAC 40 MG PO (20:49)
[2024-03-13] MEDS: PROZAC 10 MG PO (20:49)
[2024-03-13 22:19] VITALS: BP 91/55
[2024-03-14] VITALS (11 sets, daily range): BP systolic 82–104; BP diastolic 47–65; BMI 35.2
[2024-03-14] MEDS: BETAPACE 80 MG PO ×2 (05:32→17:52)
--- NOTE | 2024-03-14 05:42 | PTCARENOTE ---
Pt NSR on monitor. Denies pain or SOB. Ambulates independently in the room. call wiggins in reach
--- NOTE | 2024-03-14 08:33 | PTCARENOTE ---
Assumed care of pt from prev nsg shift; Pt AAOx3 w/no c/o CP or SOB. Pt ambulating in the rm this AM. VSS w/HR in the 60's BP 97/60 this AM. Pt's post Sotalol EKG completed; QTc 505. Cardiology advised. Pt w/call wiggins within reach & plan of care
ongoing.
[2024-03-14] MEDS: METHADONE 100 MG/10 ML 40 MG PO (09:03)
[2024-03-14] MEDS: PROTONIX 40 MG PO (09:03)
[2024-03-14] MEDS: FARXIGA 10 MG PO (09:03)
--- NOTE | 2024-03-14 09:38 | W.PN.CD ---
Today's Communication / Plan
-
Continue sotalol
Home several hours after 6th dose
Impression / Plan
-
Background: 48F with NICM (EF 45-50%), VT with prior ICD shocks (MDT DC ICD), smoker and former IVDA on methadone presents for sotalol loading after ICD shock
Primary Casting Tester: Dr. Elena
VT s/p ICD Shock
-ICD shock 02/26/2024, first episode successful with ATP x 1 the next episode 1 minute later with ATP that was unsuccessful and a 36 J shock (monomorphic VT at 260)
-Sotalol loading per protocol after BMP and EKG -- this requires intensive monitoring
-She is scheduled for EP consultation with Dr. Garnett 04/04/2024 to discuss VT ablation
-Sotalol 120 => 80 as EKG showed QTc approaching 500.
-Sotalol 80 bid so far QTc looks fine (but need to manually measure) and no Torsades
Nonischemic cardiomyopathy (LVEF 45-50%), chronic
-Daily weight, I/O, and low sodium diet
-She does not require a standing diuretic
Medtronic dual-chamber ICD
IVDA history, on methadone
Current smoker, continue cessation recommended
Subjective:
Feeling well without CP and SOB.
Physical Exam
Vital Signs/Labs
Vital Signs
Temp Pulse Resp BP Pulse Ox
98.7 F 60 20 97/60 97
03/14/24 07:35 03/14/24 07:45 03/14/24 07:35 03/14/24 07:36 03/14/24 07:35
03/13/24 03/14/24 03/15/24
06:59 06:59 06:59
Actual Weight 98.9 kg
03/13/24 13:48
03/13/24 13:48
Physical Exam
Constitutional: No acute distress
EENT: Anicteric
Cardiovascular: Rhythm & rate is regular and Pedal edema is absent
Respiratory: Respiratory effort normal and Lungs clear to auscul.
GI: Soft and Distention absent
Neuro/Psych: AO x 3
Other: Cardiac Device Site (normal)
Data Reviewed
-
Date of Service: March 14, 2024
--- NOTE | 2024-03-14 10:31 | CM ---
Chart reviewed. Patient is independent of ADLS, lives with her mom in a 1st floor apartmentt, 0 VLADIMIR, 0 DME. Plan is for the patient to return home. CM to follow
--- NOTE | 2024-03-14 20:12 | PTCARENOTE ---
Received patient at change of shift. A paced on the monitor, HR in the 60s. EKG obtained, QTc: 450. No complaints from pt at this time, call wiggins within reach.
[2024-03-14] MEDS: SEROQUEL 200 MG PO (22:14)
[2024-03-14] MEDS: ZESTRIL 20 MG PO (22:14)
[2024-03-14] MEDS: PROZAC 40 MG PO (22:14)
[2024-03-14] MEDS: PROZAC 10 MG PO (22:14)
[2024-03-15] VITALS (9 sets, daily range): BP systolic 80–106; BP diastolic 51–64; BMI 35.3
[2024-03-15] MEDS: BETAPACE 80 MG PO ×2 (05:59→18:12)
--- NOTE | 2024-03-15 08:25 | W.PN.CD ---
Today's Communication / Plan
-
Restarte BB at half dose
Continue sotalol
Home after 6th dose
F/u in our office is with a consult with Dr. Garnett to discuss the merits of VT ablation on 04/04/2024 at 240 PM
Anticipate discharge today after 6th dose
Impression / Plan
-
Background: 48F with NICM (EF 45-50%), VT with prior ICD shocks (MDT DC ICD), smoker and former IVDA on methadone presents for sotalol loading after ICD shock
Primary Public Health Service Officer: Dr. Elena
VT s/p ICD Shock, recurrent
-ICD shock 02/26/2024, first episode successful with ATP x 1 the next episode 1 minute later with ATP that was unsuccessful and a 36 J shock (monomorphic VT at 260)
-Sotalol loading per protocol after BMP and EKG -- this requires intensive monitoring
-She is scheduled for EP consultation with Dr. Garnett 04/04/2024 to discuss VT ablation
-Sotalol 120 => 80 as EKG showed QTc approaching 500.
-Sotalol 80 bid so far QTc looks fine (but need to manually measure) and no Torsades
Nonischemic cardiomyopathy (LVEF 45-50%), chronic
-Daily weight, I/O, and low sodium diet
-She does not require a standing diuretic
- Low voltage on EKG, MRI from 2019 I have asked radiology to review to see if evidence of infiltrative cardiomyopathy
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
Medtronic dual-chamber ICD
IVDA history, on methadone
Current smoker, continue cessation recommended
Subjective:
Feeling well without CP and SOB.
Physical Exam
Vital Signs/Labs
Vital Signs
Temp Pulse Resp BP Pulse Ox
98.6 F 60 20 106/64 96
03/15/24 07:49 02/06/25 07:49 03/15/24 07:49 03/15/24 07:49 03/15/24 07:49
03/14/24 03/15/24 03/16/24
06:59 06:59 06:59
Actual Weight 98.9 kg 99.2 kg
03/13/24 13:48
03/13/24 13:48
Physical Exam
Constitutional: No acute distress
EENT: Anicteric
Cardiovascular: Rhythm & rate is regular and Pedal edema is absent
Respiratory: Respiratory effort normal and Lungs clear to auscul.
GI: Soft and Distention absent
Neuro/Psych: AO x 3
Data Reviewed
-
Date of Service: March 15, 2024
[2024-03-15] MEDS: PROTONIX 40 MG PO (08:46)
[2024-03-15] MEDS: FARXIGA 10 MG PO (08:46)
[2024-03-15] MEDS: METHADONE 100 MG/10 ML 40 MG PO (08:46)
[2024-03-15 10:36] LABS: NT-proBNP 60.8 pg/ml
--- NOTE | 2024-03-15 11:28 | W.PN.UPDATE ---
Update Note
Progress Note Update
6th dose will be tomorrow.
Home tomorrow.
Total time today 50 min as I reviewed old MRI, discussed with colleagues, and needed to coordinate care to arrange for amyloid workup.
--- NOTE | 2024-03-15 12:06 | CM ---
Chart reviewed. Patient is independent of ADLS, lives with her mom in a 1st floor apartmentt, 0 VLADIMIR, 0 DME. Plan is for the patient to return home today after her 6th dose of Sotalol. CM to follow
--- NOTE | 2024-03-15 19:49 | PTCARENOTE ---
Pt denies any discomfort. Dose #5 of sotalol given this evening. Telemetry shows atrial paced rhythm with PVC, one 6bt run VT noted.
[2024-03-15] MEDS: PROZAC 40 MG PO (21:22)
[2024-03-15] MEDS: PROZAC 10 MG PO (21:22)
[2024-03-15] MEDS: SEROQUEL 200 MG PO (21:22)
[2024-03-15] MEDS: TOPROL XL 100 MG PO (21:23)
[2024-03-15] MEDS: ZESTRIL 20 MG PO (21:23)
[2024-03-16] VITALS (7 sets, daily range): BP systolic 81–103; BP diastolic 56–76; BMI 35.5
--- NOTE | 2024-03-16 00:08 | PTCARENOTE ---
Assumed care of the patient @ 1900. Pt is AAOx3 denies pain A paced on the monitor. VSS EKG post Sotalol dose # 5 QTc 485. Pt independent in the room. Call wiggins within reach.
[2024-03-16] MEDS: BETAPACE 80 MG PO (06:13)
[2024-03-16] MEDS: METHADONE 100 MG/10 ML 40 MG PO (09:04)
[2024-03-16] MEDS: FARXIGA 10 MG PO (09:04)
[2024-03-16] MEDS: PROTONIX 40 MG PO (09:04)
--- NOTE | 2024-03-16 09:16 | W.PN.CD ---
Today's Communication / Plan
-
Home today (after 6th dose at 80 BID)
New Sotalol 80 BID
Metoprolol ER decreased 50% from 200 daily to 100 daily
Impression / Plan
-
Background: 48F with NICM (EF 45-50%), VT with prior ICD shocks (MDT DC ICD), smoker and former IVDA on methadone presents for sotalol loading after ICD shock
Primary Retail Office Manager: Dr. Elena
VT s/p ICD Shock, recurrent
-ICD shock 02/26/2024, first episode successful with ATP x 1 the next episode 1 minute later with ATP that was unsuccessful and a 36 J shock (monomorphic VT at 260)
-She has had several other appropriate ICD therapies since implant, the frequency of VT was increasing leading me to move to add AAD and refer for consideration of ablation
-Sotalol loading per protocol after BMP and EKG -- this requires intensive monitoring
-She is scheduled for Ablation consultation with Dr. Garnett 04/04/2024 to discuss VT ablation
-Sotalol 120 => 80 as EKG showed QTc approaching 500.
-Sotalol 80 bid so far QTc looks fine and no Torsades
Nonischemic cardiomyopathy (LVEF 45-50%), chronic
-Daily weight, I/O, and low sodium diet
-She does not require a standing diuretic
- Low voltage on EKG, MRI from 2019 I have asked radiology to review to see if evidence of infiltrative cardiomyopathy
- Radiology reviewed MRI and did not feel that amyloid was likely
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
- pBNP this admit less than 100
Medtronic dual-chamber ICD
IVDA history, on methadone
Current smoker, continue cessation recommended
Subjective:
Feeling well without CP and SOB.
Physical Exam
Vital Signs/Labs
Vital Signs
Temp Pulse Resp BP Pulse Ox
98.4 F 60 18 93/59 97
03/16/24 06:50 03/16/24 07:15 03/16/24 06:50 03/16/24 06:50 03/16/24 06:50
03/15/24 03/16/24 03/17/24
06:59 06:59 06:59
Actual Weight 99.2 kg 99.7 kg
03/13/24 13:48
03/13/24 13:48
03/15/24
09:57
Tij-[id number]-Vmhctgngsss Pept 60.8
Data Reviewed
-
Date of Service: March 16, 2024
--- NOTE | 2024-03-16 11:03 | CM ---
Chart reviewed. Patient is independent of ADLS, lives with her mother in a apartment 1st floor, 0 VLADIMIR, 0 DME. Plan is for the patient to return home. CM to follow
--- NOTE | 2024-03-16 11:27 | PTCARENOTE ---
received patient this am in [facility] [place], ambulated back to room , alvarez. well. monitor shows Apaced, VSS. EKG completed, QTC 464. patient is hoping to be discharged today.
--- NOTE | 2024-03-16 14:30 | W.DS.TRANS ---
DC Summary - Pre Press Operator
-
Discharge Instructions:
Discharge Diagnosis/Procedures Sotalol loading for ventricular tachycardia
Diet Low Sodium
Activity No restrictions
Driving Restrictions As prior to admission
Bathing Restrictions None
Others Tests Dr. Elena's office will reach out to you
regarding other testing that he would like done
(as per your discussion with him)
Specialty Instructions Weigh Daily
Instructions:
Stand-Alone Forms:
Changes to Home Medications: Yes
Discharge Medications:
DC Medications w/original date entered in [employer]
esomeprazole magnesium 40 mg capsule,delayed release (Nexium) 40 mg PO DAILY Gastrointestinal Issue 12/24/18
fluoxetine 40 mg capsule 40 mg PO HS Depression 12/01/23
lisinopril 20 mg tablet 20 mg PO HS Blood Pressure 12/01/23
medroxyprogesterone 150 mg/mL intramuscular suspension 150 mg IM [id number] Hormonal Agent 12/01/23
methadone 10 mg/mL oral concentrate 40 mg PO DAILY Substance abuse disorder 12/01/23
quetiapine 300 mg tablet 200 mg PO HS Mental Health/Anxiety 12/01/23
empagliflozin 10 mg tablet (Jardiance) 10 mg PO DAILY 30 days #30 tabs 12/02/23
fluoxetine 10 mg tablet 10 mg PO HS Mental Health/Anxiety 03/13/24
metoprolol succinate 100 mg tablet,extended release 24 hr 100 mg PO DAILY@1999 #30 tabs 03/16/24
sotalol 80 mg tablet 80 mg PO BID@0600,1800 #60 tabs 03/16/24
Home Medication Changes
Sotalol is new.
Toprol dose reduced to 100mg daily.
Pending Results: No
--- NOTE | 2024-03-16 15:16 | PTCARENOTE ---
D/C instructions given to patient , verbalizes understanding. INT D/C'd, telemetry D/C'd, personal belongings packed and sent home with patient. D/C to home via wc accompanied by staff.
== END 2024-03-16 15:40 | disposition home or self-care (01) | DRG 309 ==
LOC: IVU 13:03
PROVIDERS: Nurse Practitioner Gerontology; ADMITTING PHYSICIAN Internal Medicine Cardiovascular Disease; FAMILY PHYSICIAN Family Medicine
PROC: 3E033GC Introduction of Other Therapeutic Substance into Peripheral Vein, Percutaneous Approach (ICD-10-PCS; 2024-03-13)
DX: I47.20 Ventricular tachycardia, unspecified (principal); I42.8 Other cardiomyopathies; F17.200 Nicotine dependence, unspecified, uncomplicated
CPT/HCPCS: 80048; 83880; 85027; 93005; 99406